=== PATIENT | male | born 1995 | race Caucasian/White ===

== ENCOUNTER → 2019-08-16 15:41 | Outpatient (CLI) | payer OTHER, SELFPAY ==
[2019-08-16 16:03] LABS: Alanine Aminotransferase 34 U/L (12-78); Albumin Level 4.6 g/dl (3.5-5.0); Albumin/Globulin Ratio 1.6 (1.1-1.8); Alkaline Phosphatase 30 U/L (38-126); Anion Gap 14.9 mEq/L (5-15); Aspartate Amino Transferase 27 U/L (17-59); Bilirubin,Total 0.4 mg/dl (0.2-1.3); Blood Urea Nitrogen 15 mg/dl (9-20); Calcium 9.8 mg/dl (8.4-10.2); Carbon Dioxide 25 mmol/L (22.0-30.0); Chloride 101 mmol/L (98-107); Estimated Glomerular Filt Rate 139 ml/min (>60); GFR (African American) 168 ML/MIN (>60); Globulin 2.9 g/dL (1.3-3.2); Glucose 101 mg/dl (74-100); HDL Cholesterol 42 mg/dl (40-60); Potassium 3.9 mmoL/L (3.5-5.1); Sodium 137 mmol/L (136-145); Total Protein,Serum 7.5 g/dl (6.3-8.2)
[2019-08-16 16:11] LABS: Basophils # 0.1 K/mm3 (0-0.2); Basophils % 0.5 % (0.1-2.0); Eosinophils # 0.5 K/mm3 (0.0-0.4); Eosinophils % 4.9 % (0.1-12.0); Hematocrit 45.8 % (42.0-52.0); Hemoglobin 15.3 g/dL (14.1-18.0); Lymphocytes # 3.5 K/mm3 (0.7-4.5); Lymphocytes % 32.1 % (10-50); Mean Corpuscular HGB Conc 33.4 g/dL (31.8-35.4); Mean Corpuscular Hemoglobin 30.3 pg (27.0-31.2); Mean Corpuscular Volume 90.7 fl (80-94); Mean Platelet Volume 9.4 fl (7.4-10.4); Monocytes # 0.8 K/mm3 (0.1-1.0); Monocytes % 7.6 % (1.7-9.3); Neutrophils % 54.9 % (37.0-80.0); Platelet Count 319 K/mm3 (142-424); Red Blood Count 5.05 M/mm3 (4.60-6.20); Red Cell Distribution Width 13.2 % (11.5-17.5)
[2019-08-16 16:20] LABS: Cholesterol 166 mg/dl (140-200); Triglycerides 164 mg/dl (30-150); VLDL Cholesterol 33 mg/dL (0-40)
[2019-08-16 16:31] LABS: Direct LDL Cholesterol 103.57 mg/dL (100-129)
[2019-08-16 16:38] LABS: T4 (Thyroxine) 7.2 ug/dl (5.53-11.0)
[2019-08-16 16:51] LABS: Thyroid Stimulating Hormone 1.84 uIU/mL (0.465-4.68)
[2019-08-19 09:54] LABS: Vitamin D 25 Hydroxy 20.9 ng/mL (30.0-100.0)
== END ==
PROVIDERS: Visit Provider Emergency Medicine
DX: F32.9 Major depressive disorder, single episode, unspecified (principal); E55.9 Vitamin D deficiency, unspecified
CPT/HCPCS: 80053; 80061; 82652; 84436; 84443; 85025

== ENCOUNTER 2020-02-04 18:02 | Emergency (ER) | payer OTHER, SELFPAY ==
[2020-02-04 18:15] VITALS: BP 144/84; PULSE 68; RESP 19; TEMP 36.8; O2SAT 99; BMI 30.2
[2020-02-04 18:37] LABS: UTC Strep Screen (Rapid) Negative (Negative)
--- NOTE | 2020-02-04 18:39 | HMH.EDUTC ---
[facility] [place] Clinical Impression: Sinusitis Qualifiers: Sinusitis location: unspecified location Chronicity: acute Recurrence: non-recurrent Qualified Code(s): J01.90 - Acute sinusitis, unspecified Upper respiratory infection Qualifiers: URI type: croup Qualified Code(s): J05.0 - Acute obstructive laryngitis [croup] Pharyngitis Qualifiers: Pharyngitis/tonsillitis etiology: unspecified etiology Qualified Code(s): J02.9 - Acute pharyngitis, unspecified Disposition: Home, Self-Care Condition on Discharge: Good Instructions: Sinusitis, DI for Sinusitis Additional Instructions: [id number] plenty of fluids. Take tylenol or ibuprofen for pain or fever. Take the medications as directed. Follow up with your regular doctor. GO TO THE ER FOR ANY WORSENING SYMPTOMS Prescriptions: Brompheniramine/Pseudoephed/Dm [Bromfed Dm Cough Syrup] 5 ml PO Q6HP PRN #240 syrup PRN Reason: Cough Transmission Status: Received by [id number] Benzonatate [Tessalon Perle 100mg Cap] 100 mg PO TIDP PRN #30 cap PRN Reason: Cough Transmission Status: Received by [id number] Azithromycin [Z-Tanner 250mg Tab*] 250 mg PO UD DOSE PK #6 tab Transmission Status: Received by [id number] Referrals: Tre Hester MD [Primary Care Provider] - Forms: Work/School Release Time of Disposition: 18:54 Medical Decision Making - Medical Records Medical records reviewed: No: I reviewed the patient's medical records. - Oscar Inquiry Pt receiving controlled substance: No Vital Signs: 02/04/20 18:15 02/04/20 18:58 Temperature 98.2 F 98.2 F Temperature Source Oral Pulse Rate 68 Pulse Rate [Right Brachial] 68 Respiratory Rate 19 19 Blood Pressure 144/84 H Blood Pressure [Right Arm] 144/84 H Blood Pressure Mean [Right Arm] 104 Blood Pressure Source [Right Arm] Automatic Cuff Blood Pressure Position [Right Arm] Sitting 02 Sat by Pulse Oximetry 99 Oxygen Delivery Method Room Air - Lab Data Lab results reviewed: Yes: I reviewed the patient's lab results. Lab Results 02/04/20 18:37: Strep Scn Rapid Clinic Negative Orders (Tests/Meds): ORDERS Category Date Time Status Strep Screen Confirmation Stat Micro 02/04/20 18:37 Received [facility] [place] - General Stated complaint: Sore throat, diarrhea, nausea Time Seen by Provider: 02/04/20 18:39 Mode of Arrival: Ambulatory Source of Information: Patient Limitations: No Limitations Description of Symptoms (Recalled from Triage Doc. by RN): PATIENT C/O SORE THROAT, NAUSEA, AND COUGH X 2 DAYS HEENT Symptoms (Recalled from RN notes): Yes Resp Symptoms (Recalled from RN notes): Yes Skin Symptoms (Recalled from RN notes): No MS Symptoms (Recalled from RN notes): No Functional Status (Recalled from RN notes): WNL - History of Present Illness Provider Complaint: He c/o sore throat, sinus congestion, and sinus drainage for the past 3 days. - Related Data Home Medications Medication Instructions Recorded Confirmed ARIPiprazole [Aripiprazole 10mg 10 mg PO QHS 02/04/20 02/04/20 Tablet] Previous Rx's Medication Instructions Recorded Azithromycin [Z-Tanner 250mg Tab*] 250 mg PO UD DOSE PK #6 tab 02/04/20 Benzonatate [Tessalon Perle 100mg 100 mg PO TIDP PRN #30 cap 02/04/20 Cap] Brompheniramine/Pseudoephed/Dm 5 ml PO Q6HP PRN #240 syrup 02/04/20 [Bromfed Dm Cough Syrup] Allergies Allergy/AdvReac Type Severity Reaction Status Date / Time No Known Allergies Allergy Verified 10/01/19 09:01 - Worker's Comp Is this a Worker's Comp case?: No [facility] History - Hepatitis A Screen Drug use history?: No High risk sexual behaviors?: No History of sexually transmitted infection?: No Currently employed?: No Childcare worker?: No Do you have indoor plumbing?: Yes Do you have electricity?: Yes Attestation statement:: This patient has been screened for Hepatitis A risk factors. I have reviewed the patient's past medi
[2020-02-04 18:58] VITALS: BP 144/84; PULSE 68; RESP 19; TEMP 36.8; O2SAT 99
== END 2020-02-04 19:00 | disposition home or self-care (01) ==
PROVIDERS: Emergency Provider Nurse Practitioner Family; PCP Emergency Medicine
DX: J01.90 Acute sinusitis, unspecified (principal); J05.0 Acute obstructive laryngitis [croup]; K21.9 Gastro-esophageal reflux disease without esophagitis; F32.9 Major depressive disorder, single episode, unspecified; F17.210 Nicotine dependence, cigarettes, uncomplicated
CPT/HCPCS: 87880; 99201

== ENCOUNTER → 2020-02-26 18:12 | Outpatient (CLI) | payer OTHER, SELFPAY | PROVIDERS: PCP Emergency Medicine; Referring Provider Emergency Medicine; Visit Provider Emergency Medicine | DX: Z03.818 Encounter for observation for suspected exposure to other biological agents ruled out (principal) | CPT/HCPCS: U0003 ==

== ENCOUNTER 2020-10-06 12:02 | Emergency (ER) | payer OTHER, SELFPAY ==
[2020-10-06 12:03] VITALS: BP 118/90; PULSE 82; RESP 19; TEMP 37; O2SAT 97; BMI 34.2
[2020-10-06 12:18] VITALS: BP 118/90; PULSE 82; RESP 19; TEMP 37; O2SAT 97
--- NOTE | 2020-10-06 12:20 | XR_ITS ---
PROCEDURE: XR CHEST 2V CLINICAL HISTORY: shortness of breath COMPARISON: No exams were available for comparison FINDINGS: The cardiomediastinal silhouette and pulmonary vascularity are within normal limits. The lungs are clear without infiltrates, suspicious nodules, or pleural effusions. No acute bony abnormalities. IMPRESSION: No acute findings. Dictated by: Octavio Horvath MD 10/06/2020 13:17 Octavio Horvath MD in [place] 10/06/2020 13:19
--- NOTE | 2020-10-06 12:45 | HMH.EDUTC ---
[facility] [place]ression: Bronchitis Disposition: Home, Self-Care Condition on Discharge: Good Instructions: DI for Acute Bronchitis Additional Instructions: Drink plenty of fluids. Take tylenol or ibuprofen for pain or fever. Take the medications as directed. Follow up with your regular doctor. GO TO THE ER FOR ANY WORSENING SYMPTOMS Prescriptions: Brompheniramine/Pseudoephed/Dm [Bromfed Dm Cough Syrup] 5 ml PO Q6HP PRN #240 syrup PRN Reason: Cough Transmission Status: Received by [id number] predniSONE [Prednisone 20mg Tab] 20 mg PO BID 4 Days #8 tab Transmission Status: Received by [id number] Azithromycin [Z-Tanner 250mg Tab*] 250 mg PO UD DOSE PK #6 tab Transmission Status: Received by [id number] Referrals: Tre Hester MD [Primary Care Provider] - Forms: Work/School Release Time of Disposition: 13:37 Medical Decision Making - Medical Records Medical records reviewed: No: I reviewed the patient's medical records. - Oscar Inquiry Pt receiving controlled substance: No Vital Signs: 10/06/20 12:03 10/06/20 12:18 Temperature 98.6 F 98.6 F Temperature Source Oral Pulse Rate 82 Pulse Rate [Left] 82 Respiratory Rate 19 19 Blood Pressure 118/90 Blood Pressure [Right Arm] 118/90 Blood Pressure Mean [Right Arm] 99 02 Sat by Pulse Oximetry 97 - Radiology Data #1 Image(s): Chest Image Reviewed: Yes I reviewed the patient's radiology image, Yes I have reviewed radiologist's interpretation Preliminary Findings: Normal/NAD, No Infiltrates Seen PROCEDURE: XR CHEST 2V CLINICAL HISTORY: shortness of breath COMPARISON: No exams were available for comparison FINDINGS: The cardiomediastinal silhouette and pulmonary vascularity are within normal limits. The lungs are clear without infiltrates, suspicious nodules, or pleural effusions. No acute bony abnormalities. IMPRESSION: No acute findings. Dictated by: Octavio Horvath MD 10/06/2020 13:17 Octavio Horvath MD in [place] 10/06/2020 13:19 [facility] [place] - General Stated complaint: cough Time Seen by Provider: 10/06/20 12:10 Mode of Arrival: Ambulatory Source of Information: Patient Limitations: No Limitations Description of Symptoms (Recalled from Triage Doc. by RN): Pt states that he woke up this morning and couldn't catch his breath. Pt also c/o of a cough that started this morning. HEENT Symptoms (Recalled from RN notes): No Resp Symptoms (Recalled from RN notes): Yes Skin Symptoms (Recalled from RN notes): No MS Symptoms (Recalled from RN notes): No Functional Status (Recalled from RN notes): wnl - History of Present Illness Provider Complaint: He states that since he woke up this morning he has a dry cough and he has felt short of breath at times. He denies any other complaints. - Related Data Home Medications Medication Instructions Recorded Confirmed ARIPiprazole [Aripiprazole 10mg 10 mg PO QHS 02/04/20 02/04/20 Tablet] Previous Rx's Medication Instructions Recorded Azithromycin [Z-Tanner 250mg Tab*] 250 mg PO UD DOSE PK #6 tab 02/04/20 Benzonatate [Tessalon Perle 100mg 100 mg PO TIDP PRN #30 cap 02/04/20 Cap] Brompheniramine/Pseudoephed/Dm 5 ml PO Q6HP PRN #240 syrup 02/04/20 [Bromfed Dm Cough Syrup] Azithromycin [Z-Tanner 250mg Tab*] 250 mg PO UD DOSE PK #6 tab 10/06/20 Brompheniramine/Pseudoephed/Dm 5 ml PO Q6HP PRN #240 syrup 10/06/20 [Bromfed Dm Cough Syrup] predniSONE [Prednisone 20mg 20 mg PO BID 4 Days #8 tab 10/06/20 Tab] Allergies Allergy/AdvReac Type Severity Reaction Status Date / Time No Known Allergies Allergy Verified 10/06/20 12:17 - Worker's Comp Is this a Worker's Comp case?: No [facility] History - Hepatitis A Screen Drug use history?: No High risk sexual behaviors?: No History of sexually transmitted infection?: No Currently employed?: No Childcare worker?: No Do you have indoor plumbing?: Yes
== END 2020-10-06 13:40 | disposition home or self-care (01) ==
PROVIDERS: Emergency Provider Nurse Practitioner Family; PCP Emergency Medicine
DX: J20.9 Acute bronchitis, unspecified (principal); K21.9 Gastro-esophageal reflux disease without esophagitis; F33.1 Major depressive disorder, recurrent, moderate
CPT/HCPCS: 71046; 99202; G0463

== ENCOUNTER 2020-12-09 19:03 | Emergency (ER) | payer OTHER, SELFPAY ==
[2020-12-09 19:37] VITALS: BMI 34.9
--- NOTE | 2020-12-09 19:37 | XR_ITS ---
PROCEDURE INFORMATION: Exam: XR Right Foot Exam date and time: 12/09/2020 7:37 PM Age: 25 years old Clinical indication: Pain; Toes; Right; Additional info: Pain and swelling TECHNIQUE: Imaging protocol: XR Right foot. Views: 3 or more views. COMPARISON: No relevant prior studies available. FINDINGS: Bones/joints: No definite acute fracture or dislocation. There are no lytic skeletal lesions seen. Tiny Achilles calcaneal spur. No significant arthritic deformities in the toes. Soft tissues: Soft tissue swelling. No radiopaque foreign bodies. No pathologic soft tissue calcification. IMPRESSION: 1. No acute fracture or dislocation. 2. No lytic lesions or findings of osteomyelitis. 3. Tiny Achilles calcaneal spur.
[2020-12-09 19:50] VITALS: BP 138/86; PULSE 108; RESP 18; TEMP 36.5; O2SAT 98; BMI 34.9
--- NOTE | 2020-12-09 20:25 | HMH.EDUTC ---
[facility] [place] Clinical Impression: Contusion of right foot Qualifiers: Encounter type: initial encounter Qualified Code(s): S90.31XA - Contusion of right foot, initial encounter Disposition: Home, Self-Care Condition on Discharge: Good Instructions: DI for Foot Sprain Additional Instructions: Rest the extremity, apply ice for 15 minutes as tolerated three or four times per day, Elevate the extremity as tolerated while you are resting. Take ibuprofen for pain. I sent in a prescription to your pharmacy. Follow up with Dr. Alvarez (podiatry). Sometimes there can be fractures that don't show up well on the first set of x-rays. So, you should follow up if you continue to have symptoms. I put in a referral but you need to call her office and schedule an appointment. Follow up with your regular doctor. GO TO THE ER FOR ANY WORSENING SYMPTOMS Prescriptions: Ibuprofen [Ibuprofen 800mg Tablet] 800 mg PO Q8HP PRN #30 tab PRN Reason: Moderate Pain Transmission Status: Received by [id number] Referrals: Tre Hester MD [Primary Care Provider] - Forms: Work/School Release Time of Disposition: 20:33 Medical Decision Making - Medical Records Medical records reviewed: No: I reviewed the patient's medical records. - Oscar Inquiry Pt receiving controlled substance: No Vital Signs: 12/09/20 19:50 12/09/20 20:35 Temperature 97.7 F 98 F Temperature Source Oral Pulse Rate 99 H Pulse Rate [Left] 108 H Respiratory Rate 18 18 Blood Pressure 133/85 Blood Pressure [Right Arm] 138/86 Blood Pressure Mean [Right Arm] 103 02 Sat by Pulse Oximetry 98 - Radiology Data #1 Image(s): Foot/Toes Image Reviewed: Yes I reviewed the patient's radiology image, Yes I have reviewed radiologist's interpretation PROCEDURE INFORMATION: Exam: XR Right Foot Exam date and time: 12/09/2020 7:37 PM Age: 25 years old Clinical indication: Pain; Toes; Right; Additional info: Pain and swelling TECHNIQUE: Imaging protocol: XR Right foot. Views: 3 or more views. COMPARISON: No relevant prior studies available. FINDINGS: Bones/joints: No definite acute fracture or dislocation. There are no lytic skeletal lesions seen. Tiny Achilles calcaneal spur. No significant arthritic deformities in the toes. Soft tissues: Soft tissue swelling. No radiopaque foreign bodies. No pathologic soft tissue calcification. IMPRESSION: 1. No acute fracture or dislocation. 2. No lytic lesions or findings of osteomyelitis. 3. Tiny Achilles calcaneal spur. [facility] [place] HPI - General Stated complaint: AP 12/09@1500 injured R foot Time Seen by Provider: 12/09/20 20:25 Mode of Arrival: Ambulatory Source of Information: Patient Limitations: No Limitations Description of Symptoms (Recalled from Triage Doc. by RN): pt states he got angry and kicked his car. pts R foot is swollen and painful near his great toe. HEENT Symptoms (Recalled from RN notes): No Resp Symptoms (Recalled from RN notes): No Skin Symptoms (Recalled from RN notes): No MS Symptoms (Recalled from RN notes): Yes (R foot pain) Functional Status (Recalled from RN notes): na - History of Present Illness Provider Complaint: He states that earlier today he accidentily kicked something with his right foot. Since then he has had foot pain at the base of his great toe. Walking and bearing weight makes the pain worse. - Related Data Home Medications Medication Instructions Recorded Confirmed ARIPiprazole [Aripiprazole 10mg 10 mg PO QHS 02/04/20 02/04/20 Tablet] Previous Rx's Medication Instructions Recorded Azithromycin [Z-Tanner 250mg Tab*] 250 mg PO UD DOSE PK #6 tab 02/04/20 Benzonatate [Tessalon Perle 100mg 100 mg PO TIDP PRN #30 cap 02/04/20 Cap] Brompheniramine/Pseudoephed/Dm 5 ml PO Q6HP PRN #240 syrup 02/04/20 [Bromfed Dm Cough Syrup] Azithromycin [Z-Tanner 250m
[2020-12-09 20:35] VITALS: BP 133/85; PULSE 99; RESP 18; TEMP 36.6
== END 2020-12-09 20:40 | disposition home or self-care (01) ==
PROVIDERS: Emergency Provider Nurse Practitioner Family; PCP Emergency Medicine
DX: S90.31XA Contusion of right foot, initial encounter (principal); W22.09XA Striking against other stationary object, initial encounter; F17.210 Nicotine dependence, cigarettes, uncomplicated
CPT/HCPCS: 73630; 99202; G0463

== ENCOUNTER 2021-03-20 08:58 | Emergency (ER) | payer OTHER, SELFPAY ==
[2021-03-20 09:00] VITALS: BP 143/88; PULSE 89; RESP 19; TEMP 36.6; O2SAT 98; BMI 33.4
--- NOTE | 2021-03-20 09:55 | HMH.EDUTC ---
[facility] [place] Clinical Impression: Exposure to COVID-19 virus Disposition: Home, Self-Care Condition on Discharge: Good Instructions: Preventing the Spread of Coronavirus Discharge Instructions, How to Care for Someone with COVID-19 Additional Instructions: covid swab was sent to lab, call later today for results. self isolate until test results are known to be negative No sign of a bacterial infection. Likely viral. Viruses can take 7-14 days to run their course. Nasal saline and bulb syringe or nose Amie to remove nasal drainage to help with nasal congestion. Hard to eat, drink, sleep with nasal congestion so important to keep this cleaned out. Monitor temp. Tylenol or Motrin as needed for pain or fever Encourage fluids, water, Gatorade, Powerade, Pedialyte if /toddler/child Warm salt water gargles Warm fluids Sore throat lozenges Sleep elevated Humidifier/vaporizer Follow-up immediately for new or worsening symptoms or no noticeable improvement over the next 48-72 hours. Referrals: Tre Hester MD [Primary Care Provider] - Forms: Work/School Release Time of Disposition: 09:58 Medical Decision Making - Oscar Inquiry Pt receiving controlled substance: No Vital Signs: 03/20/21 09:00 Temperature 97.8 F Temperature Source Oral Pulse Rate [Right Brachial] 89 Respiratory Rate 19 Blood Pressure [Right Arm] 143/88 H Blood Pressure Mean [Right Arm] 106 Blood Pressure Source [Right Arm] Automatic Cuff Blood Pressure Position [Right Arm] Sitting 02 Sat by Pulse Oximetry 98 Oxygen Delivery Method Room Air Orders (Tests/Meds): ORDERS Category Date Time Status Covid-19 Nasal PCR ([facility]) Routine Lab 03/20/21 09:10 Received [facility] [place] HPI - General Chief complaint: Ur[facility] Stated complaint: covid exposure Time Seen by Provider: 03/20/21 09:55 Mode of Arrival: Ambulatory Source of Information: Patient Limitations: No Limitations Description of Symptoms (Recalled from Triage Doc. by RN): PATIENT REQUESTING COVID TEST. TESTED POSITIVE TODAY. DENIES SYMPTOMS HEENT Symptoms (Recalled from RN notes): No Resp Symptoms (Recalled from RN notes): No Skin Symptoms (Recalled from RN notes): No MS Symptoms (Recalled from RN notes): No Functional Status (Recalled from RN notes): WNL - History of Present Illness Provider Complaint: 26 yr old male presents for covid test. pt states no symptoms, positive for covid - Related Data Home Medications Medication Instructions Recorded Confirmed ziprasidone HCL [Geodon 40mg 40 mg PO BID 03/20/21 03/20/21 capsule] Allergies Allergy/AdvReac Type Severity Reaction Status Date / Time No Known Allergies Allergy Verified 10/06/20 12:17 - Worker's Comp Is this a Worker's Comp case?: No H History - Hepatitis A Screen Drug use history?: No High risk sexual behaviors?: No History of sexually transmitted infection?: No Currently employed?: No Childcare worker?: No Do you have indoor plumbing?: Yes Do you have electricity?: Yes Attestation statement:: This patient has been screened for Hepatitis A risk factors. I have reviewed the patient's past medical history: Yes Medical History: Reports:: Depression, Gastroesophageal Reflux Disease(GERD) Amputation: No Fractures: Yes (RIGHT FEMUR/TIBIA/FIBULA, CLAVICAL) Comment: left leg fx - Social History Smoking Status: Current every day smoker Tobacco Type: cigarettes # Packs/Day (cigarettes): 2 #Yrs smoked (if former smoker): 5 Alcohol Intake: never Substance Use Type: denies use, marijuana (last time in 2018) Occupational Status: other - Psychiatric History Pschychiatric History:: Reports:: Depression Family Hx:: Cancer, Diabetes, Heart Attack, Hyperlipidemia, Hypertension, Alcoholism ROS Obtained: Yes Systems reviewed as appropriate & no additional complaints - Constitutional Constitutional: Reports system reviewed and no additional complaints, except as d
[2021-03-20 09:58] VITALS: BP 143/88; PULSE 89; RESP 19; TEMP 36.6; O2SAT 98
== END 2021-03-20 10:04 | disposition home or self-care (01) ==
PROVIDERS: Emergency Provider Nurse Practitioner Family; PCP Emergency Medicine
DX: U07.1 COVID-19 (principal); K21.9 Gastro-esophageal reflux disease without esophagitis; F33.1 Major depressive disorder, recurrent, moderate; F17.210 Nicotine dependence, cigarettes, uncomplicated
CPT/HCPCS: 99202; C9803; G0463; U0003; U0005

== ENCOUNTER 2021-12-30 13:20 | Emergency (ER) | payer OTHER, SELFPAY ==
[2021-12-30 13:20] VITALS: BP 145/91; PULSE 83; RESP 18; TEMP 36.8; O2SAT 98; BMI 34.0
[2021-12-30 13:36] VITALS: BP 145/91; PULSE 83; RESP 18; TEMP 36.8; O2SAT 98
--- NOTE | 2021-12-30 13:58 | HMH.EDUTC ---
[facility] [place] Clinical Impression: Exposure to COVID-19 virus Disposition: Home, Self-Care Condition on Discharge: Good Instructions: DI for COVID-19 (Suspected or Confirmed ), Preventing the Spread of Coronavirus Discharge Instructions Additional Instructions: *Monitor Temp, Over the counter Motrin or Tylenol as directed/as needed Tylenol every 4 hours and Motrin every 6 hours (as long as your family doctor has told you that you can take it) for fever or pain. and straight to ER if unable to lower temp less than 101.0 after medication given Follow up IMMEDIATELY for new or worsening symptoms or no Noticeable improvement over the next 48-72 hours. 911 for difficulty breathing or swallowing You were tested for today for COVID19 your test result should be back in the next 24-48 hours, you may check your results on the [facility] My Health Portal Make sure to take your Vitamins Vit. C Vit D and Zinc if you can take them Referrals: Tre Hester MD [Primary Care Provider] - As needed Forms: Work/School Release Medical Decision Making - Oscar Inquiry Pt receiving controlled substance: No Oscar was queried for this patient: No Vital Signs: 12/30/21 13:20 12/30/21 13:36 Temperature 98.3 F 98.3 F Temperature Source Oral Pulse Rate 83 Pulse Rate [Right Brachial] 83 Respiratory Rate 18 18 Blood Pressure 145/91 H Blood Pressure [Right Arm] 145/91 H Blood Pressure Mean [Right Arm] 109 Blood Pressure Source [Right Arm] Automatic Cuff Blood Pressure Position [Right Arm] Sitting 02 Sat by Pulse Oximetry 98 Oxygen Delivery Method Room Air Orders (Tests/Meds): ORDERS Category Date Time Status Covid-19 Nasal PCR ([facility]) Routine Lab 12/30/21 13:25 Received [facility] [place] HPI - General Stated complaint: Covid exposure Time Seen by Provider: 12/30/21 13:35 Mode of Arrival: Ambulatory Source of Information: Patient Limitations: No Limitations Description of Symptoms (Recalled from Triage Doc. by RN): COVID TEST D/T EXPOSURE, DENIES SYMPTOMS HEENT Symptoms (Recalled from RN notes): No Resp Symptoms (Recalled from RN notes): No Skin Symptoms (Recalled from RN notes): No MS Symptoms (Recalled from RN notes): No Functional Status (Recalled from RN notes): WNL - History of Present Illness Provider Complaint: Patient states that he was around someone that tested positive for COVID about a week ago and his work wanted him to come get tested States that he is not having any symptoms - Related Data Home Medications Medication Instructions Recorded Confirmed ziprasidone HCL [Geodon 40mg 40 mg PO BID 03/20/21 03/20/21 capsule] Allergies Allergy/AdvReac Type Severity Reaction Status Date / Time No Known Allergies Allergy Verified 10/06/20 12:17 - Worker's Comp Is this a Worker's Comp case?: No [facility] History - Hepatitis A Screen Attestation statement:: This patient has been screened for Hepatitis A risk factors. I have reviewed the patient's past medical history: Yes Medical History: Reports:: Depression, Gastroesophageal Reflux Disease(GERD) Amputation: No Fractures: Yes (RIGHT FEMUR/TIBIA/FIBULA, CLAVICAL) Comment: left leg fx - Social History Smoking Status: Current every day smoker Tobacco Type: cigarettes # Packs/Day (cigarettes): 2 #Yrs smoked (if former smoker): 5 Alcohol Intake: never Substance Use Type: denies use, marijuana (last time in 2018) Occupational Status: other - Psychiatric History Pschychiatric History:: Reports:: Depression Family Hx:: Cancer, Diabetes, Heart Attack, Hyperlipidemia, Hypertension, Alcoholism ROS Obtained: Yes All systems reviewed & no additional complaints, Yes Systems reviewed as appropriate & no additional complaints - Constitutional Constitutional: Reports system reviewed and no additional complaints, except as docu, Denies body ache, Denies chills, Denies fever(s) - ENT Ears, Nose, Mouth, and Throat: Reports system reviewed and no ad
== END 2021-12-30 13:39 | disposition home or self-care (01) ==
PROVIDERS: Emergency Provider Nurse Practitioner; PCP Emergency Medicine
DX: Z20.822 Contact with and (suspected) exposure to COVID-19 (principal)
CPT/HCPCS: 99212; C9803; G0463; U0003; U0005

== ENCOUNTER 2022-01-16 15:15 | Emergency (ER) | payer OTHER, SELFPAY ==
[2022-01-16 15:33] VITALS: BP 102/78; PULSE 85; RESP 16; TEMP 37.3; O2SAT 96; BMI 33.7
--- NOTE | 2022-01-16 15:39 | EXP.UTC ---
Discharge Plan Disposition Patient Disposition: Home, Self-Care Condition: Good Prescriptions Prescriptions: No Action ziprasidone HCl 40 MG capsule 40 mg PO BID Referrals Follow up/Referrals: Tre Hester MD [Primary Care Provider] - See instructions Activity Restrictions/Add. Instructions Additional Instructions/Restrictions: Drink plenty of fluids. Take tylenol for pain or fever. Return if you begin to have difficulty breathing. Follow up with your regular doctor. GO TO THE ER FOR ANY WORSENING SYMPTOMS Quarantine until you know the results of your covid-19 test. Notify your school or workplace of your results and follow their instructions regarding return to work/school. Clinical Impressions Clinical Impression: Exposure to COVID-19 virus Instructions Patient Instructions: Coronavirus Disease 2019, Preventing the Spread of Coronavirus Discharge Instructions Discharge ED Provider: Hua Costello [facility] General Stated complaint: covid test Mode of Arrival: Ambulatory Source of Information: Patient Limitations: No Limitations Time Seen by Provider: 01/16/22 15:39 Description of Symptoms (Recalled from Triage Doc. by RN): pt here for covid pcr. pt has no symptoms but tested positive. here to get covid test for work. HEENT Symptoms (Recalled from RN notes): No Resp Symptoms (Recalled from RN notes): No Skin Symptoms (Recalled from RN notes): No MS Symptoms (Recalled from RN notes): No Functional Status (Recalled from RN notes): n/a History of Present Illness Provider Complaint: He is here to have a covid test for his employer. His has had covid-19 at his house. He denies any symptoms so far. Related Data Home Medications Medication Instructions Recorded Confirmed ziprasidone HCl 40 mg capsule 40 mg PO BID BIPOLAR 03/20/21 03/20/21 Allergies Allergy/AdvReac Type Severity Reaction Status Date / Time No Known Allergies Allergy Verified 01/16/22 15:36 Worker's Comp Is this a Worker's Comp case?: No PFSH PFSH Social History Smoking Status: Current every day smoker tobacco type: cigarettes packs per day: 2 second hand exposure: No alcohol intake: never substance use type: denies use current occupational status: other number of children: 2 ROS Obtained: Yes All systems reviewed & no additional complaints except as documented Constitutional Constitutional: Reports system reviewed and no additional complaints, except as documented Eyes Eyes: Reports system reviewed and no additional complaints, except as documented Cardiovascular Cardiovascular: Reports system reviewed and no additional complaints, except as documented Respiratory Respiratory: Reports system reviewed and no additional complaints, except as documented Gastrointestinal Gastrointestingal: Reports system reviewed and no additional complaints, except as documented Musculoskeletal Musculoskeletal: Reports system reviewed and no additional complaints, except as documented Integumentary/Breasts Skin/Breast: Reports system reviewed and no additional complaints, except as documented Physical Exam General General appearance: alert and in no apparent distress Head Head exam: atraumatic, normocephalic and normal inspection Eye Eye exam: Present normal appearance, PERRL and EOMI ENT ENT exam: Present normal exam, normal oropharynx, mucous membranes moist, TM's normal bilaterally and normal external ear exam Neck Neck exam: Present normal inspection, full ROM and trachea midline; Absent meningismus or lymphadenopathy Chest Chest inspection: Present normal inspection and symmetric chest wall rise; Absent tenderness Respiratory Respiratory exam: Present normal lung sounds bilaterally; Absent respiratory distress Cardiovascular Cardiovascular exam: Present regular rate and normal rhythm; Absent JVD Abdominal Exam Abdominal exam: Present soft
[2022-01-16 15:50] VITALS: BP 102/78; PULSE 85; RESP 16; TEMP 37.3
== END 2022-01-16 15:51 | disposition home or self-care (01) ==
PROVIDERS: Emergency Provider Nurse Practitioner Family; PCP Emergency Medicine
DX: U07.1 COVID-19 (principal); F17.210 Nicotine dependence, cigarettes, uncomplicated; Z79.899 Other long term (current) drug therapy
CPT/HCPCS: 99213; C9803; G0463; U0003; U0005

== ENCOUNTER 2022-03-27 10:07 | Emergency (ER) | payer OTHER, SELFPAY ==
--- NOTE | 2022-03-27 11:03 | EXP.UTC ---
Discharge Plan Disposition Patient Disposition: Home, Self-Care Condition: Good Prescriptions Prescriptions: New benzonatate [benzonatate] 100 mg capsule 100 mg PO TIDP PRN (Reason: Cough) Qty: 30 0RF oseltamivir [Tamiflu] 75 mg capsule 75 mg PO BID Qty: 10 0RF ondansetron 4 mg Tablet,Disintegrating 4 mg PO Q8H PRN (Reason: Nausea) Qty: 20 0RF No Action ziprasidone HCl 40 MG capsule 40 mg PO BID Referrals Follow up/Referrals: Tre Hester MD [Primary Care Provider] - See instructions Activity Restrictions/Add. Instructions Additional Instructions/Restrictions: Drink plenty of fluids. Take tylenol or ibuprofen for pain or fever. Take the medications as directed. Follow up with your regular doctor. GO TO THE ER FOR ANY WORSENING SYMPTOMS Clinical Impressions Clinical Impression: Influenza A Stand Alone Forms Stand Alone Forms: Work/School Release Instructions Patient Instructions: DI for Influenza -- Adult, Oseltamivir Discharge ED Provider: Hua Costello [facility] General Stated complaint: cough,fever,congestion,runny nose,achey.chills Time Seen by Provider: 03/27/22 11:03 History of Present Illness Provider Complaint: He states that for the past 2 days he has had fever, chill, body aches and a cough. Related Data Home Medications Medication Instructions Recorded Confirmed ziprasidone HCl 40 mg capsule 40 mg PO BID BIPOLAR 03/20/21 03/20/21 Previous Rx's Medication Instructions Recorded benzonatate 100 mg capsule 100 mg PO TIDP PRN Cough #30 caps 03/27/22 ondansetron 4 mg disintegrating 4 mg PO Q8H PRN Nausea #20 tabs 03/27/22 tablet oseltamivir 75 mg capsule (Tamiflu) 75 mg PO BID #10 caps 03/27/22 Allergies Allergy/AdvReac Type Severity Reaction Status Date / Time No Known Allergies Allergy Verified 03/27/22 11:[address] [facility] Social History Smoking Status: Current every day smoker tobacco type: cigarettes packs per day: 2 second hand exposure: No alcohol intake: never substance use type: denies use current occupational status: other Travel in the last 8 weeks: None number of children: 2 ROS Obtained: Yes All systems reviewed & no additional complaints except as documented Constitutional Constitutional: Reports chills and Reports fever(s) Eyes Eyes: Denies eye discharge ENT Ears, Nose, Mouth, and Throat: Reports as per HPI Cardiovascular Cardiovascular: Denies chest pain Respiratory Respiratory: Denies chest congestion and Reports cough Gastrointestinal Gastrointestingal: Reports nausea; Denies abdominal pain, constipation, cramping, diarrhea or vomiting Musculoskeletal Musculoskeletal: Denies arthralgias Integumentary/Breasts Skin/Breast: Denies rash Neurologic Neurologic: Denies paresthesias Physical Exam General General appearance: alert and in no apparent distress Head Head exam: atraumatic, normocephalic and normal inspection Eye Eye exam: Present normal appearance, PERRL and EOMI ENT ENT exam: Present normal exam, normal oropharynx, mucous membranes moist, TM's normal bilaterally and normal external ear exam Neck Neck exam: Present normal inspection, full ROM and trachea midline; Absent meningismus or lymphadenopathy Chest Chest inspection: Present normal inspection and symmetric chest wall rise; Absent tenderness Respiratory Respiratory exam: Present normal lung sounds bilaterally; Absent respiratory distress Cardiovascular Cardiovascular exam: Present regular rate and normal rhythm; Absent JVD Abdominal Exam Abdominal exam: Present soft and normal bowel sounds; Absent distention, tenderness or guarding Extremities Exam Extremities exam: Present normal inspection, full ROM and normal capillary refill; Absent calf tenderness Back Exam Back exam: Present normal inspection; Absent tenderness Neurological Exam Neurological exam: Present alert and orient
[2022-03-27 11:11] VITALS: BP 139/85; PULSE 90; RESP 18; TEMP 36.5; O2SAT 96; BMI 34.0
[2022-03-27 11:25] LABS: UTC Influenza A Antigen Positive (Negative); UTC Strep Screen (Rapid) Negative (Negative)
[2022-03-27 11:26] LABS: UTC Influenza B Antigen Negative (Negative)
[2022-03-27 11:54] VITALS: BP 139/85; PULSE 90; RESP 18; TEMP 36.5
== END 2022-03-27 11:55 | disposition home or self-care (01) ==
PROVIDERS: Emergency Provider Nurse Practitioner Family; PCP Emergency Medicine
DX: J10.1 Influenza due to other identified influenza virus with other respiratory manifestations (principal); R11.0 Nausea; R50.9 Fever, unspecified; R05.9 Cough, unspecified; M79.10 Myalgia, unspecified site; Z79.899 Other long term (current) drug therapy; F17.210 Nicotine dependence, cigarettes, uncomplicated; R09.89 Other specified symptoms and signs involving the circulatory and respiratory systems
CPT/HCPCS: 87804; 87880; 99213; G0463

== ENCOUNTER 2023-02-03 08:23 | Emergency (ER) | payer BC, SELFPAY ==
[2023-02-03 08:23] VITALS: BP 134/86; PULSE 88; RESP 18; TEMP 36.7; O2SAT 99; BMI 35.4
--- NOTE | 2023-02-03 08:38 | EXP.UTC ---
Discharge Plan Disposition Patient Disposition: Home, Self-Care Condition: Good Prescriptions Prescriptions: New etodolac 200 mg capsule 200 mg PO Q8H PRN (Reason: pain) Qty: 20 0RF cyclobenzaprine 10 mg tablet 10 mg PO TID PRN (Reason: muscle spasm) Qty: 12 0RF No Action ziprasidone HCl 40 MG capsule 40 mg PO BID benzonatate [benzonatate] 100 mg capsule 100 mg PO TIDP PRN (Reason: Cough) Qty: 30 0RF oseltamivir [Tamiflu] 75 mg capsule 75 mg PO BID Qty: 10 0RF ondansetron 4 mg Tablet,Disintegrating 4 mg PO Q8H PRN (Reason: Nausea) Qty: 20 0RF Referrals Follow up/Referrals: Tre Hester MD [Primary Care Provider] - See instructions Activity Restrictions/Add. Instructions Additional Instructions/Restrictions: *Etodolac la 8 hours with meal as needed for pain/inflammation *Remember you had a Toradol shot in the clinic today, which is similar to Etodolac so do not start for the next 10 hours *Not additional anti-inflammatory like Ibuprofen motrin, aleve, advil with the above amount of Etodolac. You can still take Tylenol every 4 hours as needed if you need something else for pain *Ice 20 minutes every 2 hours for the first 48 hours after the initial injury followed by moist heat every 20 minutes 3-4 times a day to affected area *Muscle relaxer every 8 hours as needed for muscle spasms but remember, it WILL cause drowsiness You cannot take it and drive, operate machinery or care for small children. *Keep this area active, no movement leads to more stiffness, However take it easy and avoid heavy lifting pushing or pulling *Follow up with you family doctor if no improvement for further treatment Clinical Impressions Clinical Impression: Low back strain Qualifiers: Encounter type: initial encounter Qualified Code(s): S39.012A - Strain of muscle, fascia and tendon of lower back, initial encounter Stand Alone Forms Stand Alone Forms: Work/School Release Instructions Patient Instructions: Low Back Pain, Cyclobenzaprine, Etodolac Discharge ED Provider: Alice Siddiqui [facility] General Stated complaint: back pain, no accident Mode of Arrival: Ambulatory Source of Information: Patient Limitations: No Limitations Time Seen by Provider: 02/03/23 08:39 Description of Symptoms (Recalled from Triage Doc. by RN): Patient reports that his back popped this morning when he got up and now it has been hurting on the left side ever since. States his back is more stiff if he sits for too long. HEENT Symptoms (Recalled from RN notes): No Resp Symptoms (Recalled from RN notes): No Skin Symptoms (Recalled from RN notes): No MS Symptoms (Recalled from RN notes): Yes Functional Status (Recalled from RN notes): wnl History of Present Illness Provider Complaint: Patient states that he was brushing his teeth this morning and started throwing up States that he was bent over throwing up and felt something pull in his left side of lower back States that since then he has been having spasm like feeling in his left lower back and feeling stiff if he sits too long Statse that he hasnt taken anything for the pain Denies loss of control of bowel or bladder Related Data Home Medications Medication Instructions Recorded Confirmed ziprasidone HCl 40 mg capsule 40 mg PO BID BIPOLAR 03/20/21 03/20/21 Previous Rx's Medication Instructions Recorded benzonatate 100 mg capsule 100 mg PO TIDP PRN Cough #30 caps 03/27/22 ondansetron 4 mg disintegrating 4 mg PO Q8H PRN Nausea #20 tabs 03/27/22 tablet oseltamivir 75 mg capsule (Tamiflu) 75 mg PO BID #10 caps 03/27/22 cyclobenzaprine 10 mg tablet 10 mg PO TID PRN muscle spasm #12 02/03/23 tabs etodolac 200 mg capsule 200 mg PO Q8H PRN pain #20 caps 02/03/23 Allergies Allergy/AdvReac Type Severity Reaction Status Date / Time No Known Allergies Allergy Verified 03/27/22 11:16 Worker's Comp Is this a Worker's Comp case?: No PFS PFS
[2023-02-03 09:14] VITALS: BP 134/86; PULSE 88; RESP 18; TEMP 36.7; O2SAT 99
== END 2023-02-03 09:14 | disposition home or self-care (01) ==
PROVIDERS: Emergency Provider Nurse Practitioner; PCP Emergency Medicine
DX: S39.012A Strain of muscle, fascia and tendon of lower back, initial encounter; F17.210 Nicotine dependence, cigarettes, uncomplicated; X50.0XXA Overexertion from strenuous movement or load, initial encounter
CPT/HCPCS: 96372; 99212; 99214; G0463

== ENCOUNTER → 2023-02-06 10:18 | Outpatient (CLI) | payer BC, SELFPAY ==
--- NOTE | 2023-02-06 10:20 | XR_ITS ---
FINAL REPORT CLINICAL HISTORY: disc herniation, was recently bending and felt a pop COMPARISON: None FINDINGS: The vertebrae are normal height. Alignment is within normal limits. The disc spaces are preserved. Prevertebral soft tissues are unremarkable. There is no instability with flexion or extension. IMPRESSION: No acute process. Reviewed, Interpreted and Dictated by Darrell Craven MD Transcribed by Marcela Barragan Authenticated and [facility]
== END ==
PROVIDERS: PCP Emergency Medicine; Visit Provider Nurse Practitioner Family
DX: S39.012A Strain of muscle, fascia and tendon of lower back, initial encounter (principal); Y99.9 Unspecified external cause status
CPT/HCPCS: 72114

== ENCOUNTER → 2023-03-04 08:55 | Outpatient (CLI) | payer BC, SELFPAY ==
[2023-03-04 09:04] LABS: MANUAL DIFFERENTIAL MANUAL DIFFERENTIAL (MANUAL DIFF)
[2023-03-04 09:32] LABS: Basophils # 0.1 K/mm3 (0-0.2); Basophils % 0.6 % (0.1-2.0); Eosinophils # 0.5 K/mm3 (0.0-0.4); Eosinophils % 5.4 % (0.1-12.0); Hematocrit 43.3 % (42.0-52.0); Lymphocytes % 30.3 % (10-50); Mean Corpuscular HGB Conc 34.6 g/dL (31.8-35.4); Mean Corpuscular Hemoglobin 30.8 pg (27.0-31.2); Mean Corpuscular Volume 88.8 fl (80-94); Mean Platelet Volume 7.9 fl (7.4-10.4); Monocytes # 0.7 K/mm3 (0.1-1.0); Monocytes % 6.9 % (1.7-9.3); Neutrophils # 5.6 K/mm3 (1.8-7.8); Neutrophils % 56.7 % (37.0-80.0); Platelet Count 285 K/mm3 (142-424); Red Blood Count 4.88 M/mm3 (4.60-6.20); Red Cell Distribution Width 13.8 % (11.5-17.5); White Blood Count 9.9 K/mm3 (4.8-10.8)
[2023-03-04 09:43] LABS: Hemoglobin A1C 5.8 % (4.0-6.0)
[2023-03-04 09:47] LABS: Alanine Aminotransferase 38 U/L (12-78); Albumin Level 4.4 g/dl (3.5-5.0); Albumin/Globulin Ratio 1.4 (1.1-1.8); Alkaline Phosphatase 41 U/L (38-126); Amphetamine/Metha Screen,Urine Negative ng/ml (<1000); Aspartate Amino Transferase 33 U/L (17-59); Barbiturates Screen,Urine Negative ng/ml (<200); Bilirubin,Total 0.3 mg/dl (0.2-1.3); Blood Urea Nitrogen 11 mg/dl (9-20); Calcium 9.6 mg/dl (8.4-10.2); Carbon Dioxide 30 mmol/L (22.0-30.0); Chloride 102 mmol/L (98-107); Chol/HDL Ratio 5.2 (1-3.5); Cholesterol 178 mg/dl (140-200); Estimated Glomerular Filt Rate 89 ml/min (>60); GFR (African American) 108 ML/MIN (>60); Globulin 3.1 g/dL (1.3-3.2); Glucose 103 mg/dl (74-100); HDL Cholesterol 34 mg/dl (40-60); Sodium 140 mmol/L (136-145); Total Protein,Serum 7.5 g/dl (6.3-8.2); Triglycerides 141 mg/dl (30-150); VLDL Cholesterol 28 mg/dL (0-40)
[2023-03-04 09:48] LABS: Cannabinoid Screen,Urine Negative ng/ml (<50)
[2023-03-04 09:49] LABS: Benzodiazepines Screen,Urine Negative ng/ml (<200); Methadone Screen,Urine Negative ng/ml (<300)
[2023-03-04 09:50] LABS: Cocaine Screen,Urine Negative ng/ml (<300); Phencyclidine Screen,Urine Negative ng/ml (<25)
[2023-03-04 09:51] LABS: Opiate Screen,Urine Negative ng/ml (<300)
[2023-03-04 10:04] LABS: 25-OH Vitamin D, Total 39.4 ng/mL (30-100)
[2023-03-04 10:05] LABS: Direct LDL Cholesterol 111.11 mg/dL (100-129); Free Thyroxine Index 2.4 ug/dL (5.93-13.13); T4 (Thyroxine) 6.8 ug/dl (5.53-11.0); Triiodothryronine (T3) Uptake 35 % (23.5-40.5)
[2023-03-04 10:19] LABS: Thyroid Stimulating Hormone 1.24 uIU/mL (0.465-4.68)
[2023-03-04 10:38] LABS: Vitamin B12 269 pg/mL (239-931)
[2023-03-04 10:42] LABS: Eosinophils % 4 % (0-3); Lymphocytes % 38 % (10-50); Monocytes % 4 % (2-9); Neutrophils % 54 % (42-76); Platelet Estimate Normal; RBC Morphology Normal; Total Cells Counted 100
[2023-03-05 09:25] LABS: HBsAg Screen Negative (Negative); HCV Ab Non Reactive (Non Reactive); Hep A Ab, IGM Negative (Negative); Hep B Core Ab, IgM Negative (Negative)
== END ==
PROVIDERS: PCP Emergency Medicine
DX: F31.9 Bipolar disorder, unspecified (principal); E66.9 Obesity, unspecified; Z68.35 Body mass index [BMI] 35.0-35.9, adult; Z79.899 Other long term (current) drug therapy
CPT/HCPCS: 36415; 80053; 80061; 80074; 80305; 82306; 82607; 83036; 84146; 84436; 84443; 84479; 85007; 85014; 85018; 85048; 85049

== ENCOUNTER 2023-04-25 09:35 | Emergency (ER) | payer BC, SELFPAY ==
[2023-04-25 10:00] VITALS: BP 124/71; PULSE 96; RESP 18; TEMP 37.1; O2SAT 98; BMI 36.1
--- NOTE | 2023-04-25 10:27 | EXP.UTC ---
Discharge Plan Disposition Patient Disposition: Home, Self-Care Condition: Good Prescriptions Prescriptions: New dextromethorphan polistirex [Delsym 12 hour] 30 mg/5 mL suspension,extended rel 12 hr 10 ml PO Q12H PRN (Reason: cough) Qty: 89 0RF No Action ziprasidone HCl 40 MG capsule 40 mg PO BID Referrals Follow up/Referrals: Provider,Referral, MD [Primary Care Provider] - See instructions Activity Restrictions/Add. Instructions Additional Instructions/Restrictions: *Monitor Temp, Over the counter Motrin or Tylenol as directed/as needed Tylenol every 4 hours and Motrin every 6 hours (as long as your family doctor has told you that you can take it) for fever or pain. and straight to ER if unable to lower temp less than 101.0 after medication given *Warm salt water gargles may help to soothe the throat *Throat Lozenges? *Warm fluids like tea with honey may help to soothe the throat? *Sleep elevated *Humidifier/Vaporizer Your throat swab was sent for culture. Those results are typically sent to your primary care. Be sure to follow up in 2-3 days with your family doctor/primary care physician if no improvement so they can review those result and treat if necessary. If you don?t have a primary care doctor, I recommend you get one but in the mean time, you will have to return to a walk in clinic Follow up IMMEDIATELY for new or worsening symptoms or no Noticeable improvement over the next 48-72 hours. 911 for difficulty breathing or swallowing You were tested for today for Upper Respiratory Panel with COVID19 your test result should be back in the next 24hours, you may check your results on the [facility] My Health Portal if your COVID test is positive you must Quarantine for 5 days Clinical Impressions Clinical Impression: Viral upper respiratory tract infection with cough Stand Alone Forms Stand Alone Forms: Work/School Release Instructions Patient Instructions: DI for Viral Upper Respiratory Infection -- Adult Discharge ED Provider: Alice Siddiqu[place] [facility] [place] General Stated complaint: RUNNY NOSE AND COUGH Mode of Arrival: Ambulatory Source of Information: Patient Limitations: No Limitations Time Seen by Provider: 04/25/23 10:27 Description of Symptoms (Recalled from Triage Doc. by RN): cough, runny nose, and vomiting HEENT Symptoms (Recalled from RN notes): Yes Resp Symptoms (Recalled from RN notes): No Skin Symptoms (Recalled from RN notes): No MS Symptoms (Recalled from RN notes): No Functional Status (Recalled from RN notes): n/a History of Present Illness Provider Complaint: Patient states that he hasnt been feeling well States that all his children are sick also States that he has been having cough, runny nose, vomiting and sore scratchy throat so he came in to get checked Related Data Home Medications Medication Instructions Recorded Confirmed ziprasidone HCl 40 mg capsule 40 mg PO BID BIPOLAR 03/20/21 04/25/23 Previous Rx's Medication Instructions Recorded dextromethorphan polistirex 30 10 ml PO Q12H PRN cough #89 mL 04/25/23 mg/5 mL oral susp ext.release 12hr (Delsym 12 hour) Allergies Allergy/AdvReac Type Severity Reaction Status Date / Time No Known Allergies Allergy Verified 04/25/23 10:27 Worker's Comp Is this a Worker's Comp case?: No [facility] Disclaimer: The information contained in this section may have been updated after the patient was seen, as this information can be updated by other users. Medical History Bipolar 2 disorder Surgical History No significant past surgical history Family History Other No significant family history Social History Smoking Status: Current every day smoker tobacco type: cigarette
[2023-04-25 10:58] LABS: UTC Influenza A Antigen Negative (Negative)
[2023-04-25 10:59] LABS: UTC Influenza B Antigen Negative (Negative)
[2023-04-25 11:20] VITALS: BP 124/71; PULSE 96; RESP 18; TEMP 37.1; O2SAT 98
== END 2023-04-25 11:28 | disposition home or self-care (01) ==
PROVIDERS: Emergency Provider Nurse Practitioner
DX: R05.9 Cough, unspecified (principal); J06.9 Acute upper respiratory infection, unspecified; B34.9 Viral infection, unspecified; R11.2 Nausea with vomiting, unspecified; R09.81 Nasal congestion; R07.0 Pain in throat; F17.210 Nicotine dependence, cigarettes, uncomplicated
CPT/HCPCS: 87804; 87880; 99212; 99214; G0463

== ENCOUNTER 2023-06-27 09:04 | Emergency (ER) | payer SELFPAY ==
[2023-06-27 09:20] VITALS: BP 128/75; PULSE 97; RESP 18; TEMP 36.6; O2SAT 97; BMI 35.1
--- NOTE | 2023-06-27 09:38 | ED_ITS ---
Discharge Plan Disposition Patient Disposition: Home, Self-Care Condition: Good Prescriptions Prescriptions: New prednisone 10 mg tablet 10 mg PO BID 3 Days Qty: 6 0RF amoxicillin [amoxicillin] 875 mg tablet 875 mg PO Q12H Qty: 20 0RF [id number] [Bromfed DM] 2-30-10 mg/5 mL Syrup 5 ml PO Q6H PRN (Reason: Cough) Qty: 240 0RF No Action ziprasidone HCl 40 MG capsule 40 mg PO BID dextromethorphan polistirex [Delsym 12 hour] 30 mg/5 mL suspension,extended rel 12 hr 10 ml PO Q12H PRN (Reason: cough) Qty: 89 0RF Referrals Follow up/Referrals: Provider,Referral, MD [Primary Care Provider] - See instructions Activity Restrictions/Add. Instructions Additional Instructions/Restrictions: Drink plenty of fluids. Take tylenol or ibuprofen for pain or fever. Take the medications as directed. Follow up with your regular doctor. GO TO THE ER FOR ANY WORSENING SYMPTOMS Clinical Impressions Clinical Impression: Pharyngitis Stand Alone Forms Stand Alone Forms: Work/School Release Instructions Patient Instructions: Sore Throat, DI for Pharyngitis/Tonsillopharyngitis -- Adult Discharge ED Provider: Hua Costello [facility] General Stated complaint: congestion, weakness and cough Time Seen by Provider: 06/27/23 09:38 History of Present Illness Provider Complaint: He states that for the past 2 days he has had worsening sore throat, chills, and malaise. Related Data Home Medications Medication Instructions Recorded Confirmed ziprasidone HCl 40 mg capsule 40 mg PO BID BIPOLAR 03/20/21 06/27/23 Previous Rx's Medication Instructions Recorded dextromethorphan polistirex 30 10 ml PO Q12H PRN cough #89 mL 04/25/23 mg/5 mL oral susp ext.release 12hr (Delsym 12 hour) amoxicillin 875 mg tablet 875 mg PO Q12H #20 tabs 06/27/23 [id number] 5 ml PO Q6H PRN Cough #240 mL 06/27/23 2 mg-30 mg-10 mg/5 mL oral syrup (Bromfed DM) prednisone 10 mg tablet 10 mg PO BID 3 days #6 tabs 06/27/23 Allergies Allergy/AdvReac Type Severity Reaction Status Date / Time No Known Allergies Allergy Verified 06/27/23 09:48 [facility] Disclaimer: The information contained in this section may have been updated after the patient was seen, as this information can be updated by other users. Medical History Bipolar 2 disorder Surgical History No significant past surgical history Family History Other No significant family history Social History Smoking Status: Current every day smoker tobacco type: cigarettes packs per day: 2 second hand exposure: No alcohol intake: never substance use type: denies use current occupational status: other Travel in the last 8 weeks: None number of children: 2 ROS Obtained: Yes All systems reviewed & no additional complaints except as documented Constitutional Constitutional: Reports chills and Reports fever(s) Eyes Eyes: Denies eye discharge ENT Ears, Nose, Mouth, and Throat: Reports as per HPI Cardiovascular Cardiovascular: Denies chest pain Respiratory Respiratory: Denies chest congestion and Reports cough Gastrointestinal Gastrointestingal: Reports nausea; Denies abdominal pain, constipation, cramping, diarrhea or vomiting Musculoskeletal Musculoskeletal: Denies arthralgias Integumentary/Breasts Skin/Breast: Denies rash Neurologic Neurologic: Denies paresthesias Physical Exam General General appearance: alert and in no apparent distress Head Head exam: atraumatic, normocephalic and normal inspection Eye Eye exam: Present normal appearance, PERRL and EOMI ENT ENT exam: Present mucous membranes moist and normal external ear exam Expanded ENT Exam TM/Canal exam: Bilateral TM: erythema and bulging Nose exam: Absent sinus tenderness Mouth exam: Present normal external inspection; Absent drooling Teeth exam: Present normal inspection Throat exam: Present tonsillar erythema, tonsillomegaly and tonsillar exudate Neck Neck exam: Present normal inspection, full ROM and trachea midline; Absent tenderness, meningismus or lymphadenopathy Chest Chest inspection: Present normal inspection and symmetric chest wall rise; Absent tenderness Respiratory Respiratory exam: Present normal lung sounds bilaterally; Absent respiratory distress, wheezes or stridor Cardiovascular Cardiovascular exam: Present regular rate and normal rhythm; Absent systolic murmur or diastolic murmur Abdominal Exam Abdominal exam: Present soft and normal bowel sounds; Absent distention, tenderness, guarding, rebound or rigidity Extremities Exam Extremities exam: Present normal inspection and normal capillary refill; Absent calf tenderness Back Exam Back exam: Present normal inspection and full ROM; Absent tenderness, CVA tenderness (R) or CVA tenderness (L) Neurological Exam Neurological exam: Present alert, oriented X3 and CN II-XII intact Psychiatric Psychiatric exam: Present normal affect and normal mood Skin Skin exam: Present warm, dry, intact and normal color Medical Decision Making Medical Records Medical records reviewed: No I reviewed the patient's medical records. Oscar Inquiry Pt receiving controlled substance: No Lab Data Lab results reviewed: Yes I reviewed the patient's lab results.
[2023-06-27 10:07] LABS: UTC Influenza A Antigen Negative (Negative); UTC Influenza B Antigen Negative (Negative); UTC Strep Screen (Rapid) Negative (Negative)
[2023-06-27 10:21] VITALS: BP 128/75; PULSE 97; RESP 18; TEMP 36.6; O2SAT 97
== END 2023-06-27 10:21 | disposition home or self-care (01) ==
PROVIDERS: Emergency Provider Nurse Practitioner Family
DX: J02.9 Acute pharyngitis, unspecified (principal); R50.9 Fever, unspecified; R05.9 Cough, unspecified; R53.81 Other malaise; F17.210 Nicotine dependence, cigarettes, uncomplicated
CPT/HCPCS: 87804; 87880; 99212; 99214; G0463

== ENCOUNTER 2024-01-26 09:13 | Emergency (ER) | payer BC, SELFPAY ==
--- NOTE | 2024-01-26 09:27 | EXP.UTC ---
Discharge Plan Disposition Patient Disposition: Home, Self-Care Condition: Good Prescriptions Prescriptions: New cyclobenzaprine 10 mg Tablet 10 mg PO BID PRN (Reason: Muscle Spasm) Qty: 20 0RF methylprednisolone 4 mg Tablets,Dose Pack 4 mg PO DIRECTED 6 Days Qty: 21 0RF Rx Instructions: Take 1 pack as directed for 6 days No Action ziprasidone HCl 40 MG capsule 40 mg PO BID prednisone 10 mg tablet 10 mg PO BID 3 Days Qty: 6 0RF amoxicillin [amoxicillin] 875 mg tablet 875 mg PO Q12H Qty: 20 0RF [id number] [Bromfed DM] 2-30-10 mg/5 mL Syrup 5 ml PO Q6H PRN (Reason: Cough) Qty: 240 0RF dextromethorphan polistirex [Delsym 12 hour] 30 mg/5 mL suspension,extended rel 12 hr 10 ml PO Q12H PRN (Reason: cough) Qty: 89 0RF Referrals Follow up/Referrals: Provider,Referral, MD [Primary Care Provider] - See instructions Activity Restrictions/Add. Instructions Additional Instructions/Restrictions: Go home and rest. It would be best if you rested tomorrow too. No heavy lifting and No twisting for the next few days. Take the oral medications as directed. The muscle relaxer (cyclobenzaprine--Flexeril) will make you drowsy, so don't drive or operate heavy machinery after taking it. Don't start the oral steroids (medrol dose pack) until tomorrow, since you had the shots in here today. Follow up with your regular doctor. GO TO THE ER FOR ANY WORSENING SYMPTOMS OR CONCERN, ESPECIALLY BOWEL OR BLADDER ISSUES, SADDLE AREA NUMBNESS, FEVER, ETC Clinical Impressions Clinical Impression: Torticollis Stand Alone Forms Stand Alone Forms: Work/School Release Instructions Patient Instructions: DI for Torticollis, Ketorolac Injection, Dexamethasone Injection Print Language Print Language: Bulgarian Discharge ED Provider: Hua Costello [facility] General Stated complaint: left shoulder and neck pain Time Seen by Provider: 01/26/24 09:27 History of Present Illness Provider Complaint: He c/o neck pain and stiffness that radiates to his left shoulder since yesterday morning. He states that he woke up this way and he denies any falls or injuries. He denies fever/chills/malaise. Related Data Home Medications ?Medication ?Instructions ?Recorded ?Confirmed ziprasidone HCl 40 mg capsule 40 mg PO BID BIPOLAR 03/20/21 06/27/23 Previous Rx's ?Medication ?Instructions ?Recorded dextromethorphan polistirex 30 10 ml PO Q12H PRN cough #89 mL 04/25/23 mg/5 mL oral susp ext.release 12hr (Delsym 12 hour) amoxicillin 875 mg tablet 875 mg PO Q12H #20 tabs 06/27/23 pbkiylfqmxeqrdj-gpskuxtilfbrdqn-JF 5 ml PO Q6H PRN Cough #240 mL 06/27/23 2 mg-30 mg-10 mg/5 mL oral syrup (Bromfed DM) prednisone 10 mg tablet 10 mg PO BID 3 days #6 tabs 06/27/23 cyclobenzaprine 10 mg tablet 10 mg PO BID PRN Muscle Spasm #20 01/26/24 tabs methylprednisolone 4 mg tablets in 4 mg PO DIRECTED 6 days #21 tabs 01/26/24 a dose pack Allergies Allergy/AdvReac Type Severity Reaction Status Date / Time No Known Allergies Allergy Verified 06/27/23 09:48 [facility] Disclaimer: The information contained in this section may have been updated after the patient was seen, as this information can be updated by other users. Medical History Bipolar 2 disorder Surgical History No significant past surgical history Family History Other No significant family history Social History Smoking Status: Current every day smoker tobacco type: cigarettes packs per day: 2 second hand exposure: No alcohol intake: never substance use type: denies use current occupational status: other Travel in the last 8 weeks: None number of children: 2 ROS Obtained: Yes All systems reviewed & no additional complaints except as documented Constitutional Constitutional: Denies chills and Denies fever(s) Eyes Eyes: Denies eye discharge ENT Ears, Nose, Mouth, and Throat: Denies dizziness, Denies otalgia, Reports neck pain and Denies sore throat Cardiovascular Cardiovascular: Denies chest pain Respiratory Respiratory: Denies shortness of breath, Denies chest congestion, Denies cough, Denies stridor and Denies wheezing Gastrointestinal Gastrointestingal: Denies nausea or vomiting Musculoskeletal Musculoskeletal: Denies back pain and Reports neck pain Integumentary/Breasts Skin/Breast: Denies rash Neurologic Neurologic: Denies dizziness and Denies paresthesias Allergic/Immunologic Allergic/Immunologic: Denies wheezing Physical Exam General General appearance: alert and in no apparent distress Head Head exam: atraumatic, normocephalic and normal inspection Eye Eye exam: Present normal appearance, PERRL and EOMI ENT ENT exam: Present normal exam, normal oropharynx, mucous membranes moist, TM's normal bilaterally and normal external ear exam Neck Neck exam: Present trachea midline; Absent tenderness, meningismus or lymphadenopathy Chest Chest inspection: Present normal inspection and symmetric chest wall rise; Absent tenderness Respiratory Respiratory exam: Present normal lung sounds bilaterally; Absent respiratory distress Cardiovascular Cardiovascular exam: Present regular rate and normal rhythm; Absent JVD Abdominal Exam Abdominal exam: Present soft and normal bowel sounds; Absent distention, tenderness or guarding Extremities Exam Extremities exam: Present normal inspection, full ROM and normal capillary refill; Absent calf tenderness Back Exam Back exam: Present normal inspection; Absent tenderness Neurological Exam Neurological exam: Present alert and oriented X3 Psychiatric Psychiatric exam: Present normal affect and normal mood Skin Skin exam: Present warm, dry, intact and normal color Lymphatic Lymphatic Findings: no adenopathy Medical Decision Making Medical Records Medical records reviewed: No I reviewed the patient's medical records. Oscar Inquiry Pt receiving controlled substance: No
[2024-01-26 09:31] VITALS: BP 144/79; PULSE 78; RESP 16; TEMP 36.8; O2SAT 99; BMI 35.4
[2024-01-26] MEDS: KETOROLAC 60MG/2ML VIAL 60 MG IM (10:15)
[2024-01-26] MEDS: DEXAMETHASONE 4MG/ML 1ML VIAL 10 MG IM (10:15)
[2024-01-26 10:38] VITALS: BP 144/79; PULSE 78; RESP 16; TEMP 36.8; O2SAT 99
== END 2024-01-26 10:41 | disposition home or self-care (01) ==
PROVIDERS: Emergency Provider Nurse Practitioner Family
DX: M43.6 Torticollis (principal); M54.2 Cervicalgia
CPT/HCPCS: 96372; 99212; 99214; G0463; J1100; J1885

== ENCOUNTER 2024-03-08 08:20 | Emergency (ER) | payer BC, SELFPAY ==
--- NOTE | 2024-03-08 08:34 | EXP.UTC ---
Discharge Plan Disposition Patient Disposition: Home, Self-Care Condition: Good Prescriptions Prescriptions: New amoxicillin 875 mg tablet 875 mg PO Q12H Qty: 20 0RF [id number]-[id number] [Bromfed DM] 2-30-10 mg/5 mL Syrup 5 ml PO Q6H PRN (Reason: Cough) Qty: 240 0RF No Action ziprasidone HCl 40 MG capsule 40 mg PO BID Referrals Follow up/Referrals: Abiel Dockery DO [Primary Care Provider] - See instructions Activity Restrictions/Add. Instructions Additional Instructions/Restrictions: Drink plenty of fluids. Take tylenol or ibuprofen for pain or fever. Take the medications as directed. Follow up with your regular doctor. GO TO THE ER FOR ANY WORSENING SYMPTOMS Throw your tooth brush away and get a new one. Clinical Impressions Clinical Impression: Strep pharyngitis Stand Alone Forms Stand Alone Forms: Work/School Release Instructions Patient Instructions: Strep Throat, DI for Strep Throat Print Language Print Language: Tamaz[place] Discharge ED Provider: Hua Costello [facility] HPI General Stated complaint: cough, chills, body aches, nausea, vomit, diarrhea Time Seen by Provider: 03/08/24 08:34 Related Data Home Medications ?Medication ?Instructions ?Recorded ?Confirmed ziprasidone HCl 40 mg capsule 40 mg PO BID BIPOLAR 03/20/21 03/08/24 Previous Rx's ?Medication ?Instructions ?Recorded amoxicillin 875 mg tablet 875 mg PO Q12H #20 tabs 03/08/24 febszoimqqonpqf-vokjpoaujnekcso-ZV 5 ml PO Q6H PRN Cough #240 mL 03/08/24 2 mg-30 mg-10 mg/5 mL oral syrup (Bromfed DM) Allergies Allergy/AdvReac Type Severity Reaction Status Date / Time No Known Allergies Allergy Verified 06/27/23 09:48 [facility] Disclaimer: The information contained in this section may have been updated after the patient was seen, as this information can be updated by other users. Medical History Bipolar 2 disorder Surgical History No significant past surgical history Family History Other No significant family history Social History Smoking Status: Current every day smoker tobacco type: cigarettes packs per day: 2 second hand exposure: No alcohol intake: never substance use type: denies use current occupational status: other Travel in the last 8 weeks: None number of children: 2 ROS Obtained: Yes All systems reviewed & no additional complaints except as documented Constitutional Constitutional: Reports chills and Reports fever(s) Eyes Eyes: Denies eye discharge ENT Ears, Nose, Mouth, and Throat: Reports as per HPI Cardiovascular Cardiovascular: Denies chest pain Respiratory Respiratory: Denies chest congestion and Reports cough Gastrointestinal Gastrointestingal: Reports nausea; Denies abdominal pain, constipation, cramping, diarrhea or vomiting Musculoskeletal Musculoskeletal: Denies arthralgias Integumentary/Breasts Skin/Breast: Denies rash Neurologic Neurologic: Denies paresthesias Physical Exam General General appearance: alert and in no apparent distress Head Head exam: atraumatic, normocephalic and normal inspection Eye Eye exam: Present normal appearance, PERRL and EOMI ENT ENT exam: Present mucous membranes moist and normal external ear exam Expanded ENT Exam TM/Canal exam: Bilateral TM: erythema and bulging Nose exam: Absent sinus tenderness Mouth exam: Present normal external inspection; Absent drooling Teeth exam: Present normal inspection Throat exam: Present tonsillar erythema, tonsillomegaly and tonsillar exudate Neck Neck exam: Present normal inspection, full ROM and trachea midline; Absent tenderness, meningismus or lymphadenopathy Chest Chest inspection: Present normal inspection and symmetric chest wall rise; Absent tenderness Respiratory Respiratory exam: Present normal lung sounds bilaterally; Absent respiratory distress, wheezes, stridor or accessory muscle use Cardiovascular Cardiovascular exam: Present regular rate and normal rhythm; Absent systolic murmur or diastolic murmur Abdominal Exam Abdominal exam: Present soft and normal bowel sounds; Absent distention, tenderness, guarding, rebound or rigidity Extremities Exam Extremities exam: Present normal inspection and normal capillary refill; Absent calf tenderness Back Exam Back exam: Present normal inspection and full ROM; Absent tenderness, CVA tenderness (R) or CVA tenderness (L) Neurological Exam Neurological exam: Present alert, oriented X3 and CN II-XII intact Psychiatric Psychiatric exam: Present normal affect and normal mood Skin Skin exam: Present warm, dry, intact and normal color Medical Decision Making Medical Records Medical records reviewed: No I reviewed the patient's medical records. Screening: Per USPSTF and CDC recommendations, given the prevalence of disease in our region, it is our hospital?s policy to screen for HIV and viral Hepatitis for all patients aged 18 and over and those with ongoing risk factors. Oscar Inquiry Pt receiving controlled substance: No Lab Data Lab results reviewed: Yes I reviewed the patient's lab results.
[2024-03-08 08:44] VITALS: BP 160/98; PULSE 98; RESP 20; TEMP 36.9; O2SAT 97; BMI 35.7
[2024-03-08 08:56] LABS: UTC Influenza A Antigen Negative (Negative); UTC Influenza B Antigen Negative (Negative); UTC Strep Screen (Rapid) Positive (Negative)
[2024-03-08 09:22] VITALS: BP 160/98; PULSE 98; RESP 20; TEMP 36.9
== END 2024-03-08 09:23 | disposition home or self-care (01) ==
PROVIDERS: Emergency Provider Nurse Practitioner Family; PCP Internal Medicine
DX: J02.0 Streptococcal pharyngitis (principal)
CPT/HCPCS: 87804; 87880; 99213; G0381

== ENCOUNTER 2024-08-03 08:24 | Outpatient (CLI) | payer BC, SELFPAY ==
[2024-08-03 08:58] LABS: Basophils # 0.1 K/mm3 (0-0.2); Basophils % 0.6 % (0.1-2.0); Eosinophils # 0.6 K/mm3 (0.0-0.4); Eosinophils % 4.9 % (0.1-12.0); Hematocrit 39.1 % (42.0-52.0); Hemoglobin 13.1 g/dL (14.1-18.0); Lymphocytes # 3.4 K/mm3 (0.7-4.5); Lymphocytes % 29.2 % (10-50); Mean Corpuscular HGB Conc 33.5 g/dL (31.8-35.4); Mean Corpuscular Hemoglobin 28.9 pg (27.0-31.2); Mean Corpuscular Volume 86.1 fl (80-94); Mean Platelet Volume 9.7 fl (7.4-10.4); Monocytes % 8.3 % (1.7-9.3); Neutrophils # 6.6 K/mm3 (1.8-7.8); Neutrophils % 56.7 % (37.0-80.0); Platelet Count 294 K/mm3 (142-424); Red Blood Count 4.54 M/mm3 (4.60-6.20); Red Cell Distribution Width 13.1 % (11.5-17.5); White Blood Count 11.6 K/mm3 (4.8-10.8)
[2024-08-03 09:19] LABS: Hemoglobin A1C 5.8 % (4.0-6.0)
[2024-08-03 09:20] LABS: Alanine Aminotransferase 47 U/L (12-78); Albumin Level 4.4 g/dl (3.5-5.0); Albumin/Globulin Ratio 1.7 (1.1-1.8); Alkaline Phosphatase 41 U/L (38-126); Anion Gap 11.7 mEq/L (5-15); Aspartate Amino Transferase 35 U/L (17-59); Bilirubin,Direct 0.1 mg/dl (0.0-0.4); Bilirubin,Total 0.3 mg/dl (0.2-1.3); Blood Urea Nitrogen 13 mg/dl (9-20); Calcium 9.4 mg/dl (8.4-10.2); Carbon Dioxide 26 mmol/L (22.0-30.0); Chloride 103 mmol/L (98-107); Estimated Glomerular Filt Rate 100 ml/min (>60); GFR (African American) 121 ML/MIN (>60); Globulin 2.6 g/dL (1.3-3.2); Glucose 103 mg/dl (74-100); Potassium 3.7 mmoL/L (3.5-5.1); Sodium 137 mmol/L (136-145)
[2024-08-03 09:28] LABS: Barbiturates Screen,Urine Negative ng/ml (<200)
[2024-08-03 09:29] LABS: Benzodiazepines Screen,Urine Negative ng/ml (<200)
[2024-08-03 09:30] LABS: Amphetamine/Metha Screen,Urine Negative ng/ml (<1000); Cocaine Screen,Urine Negative ng/ml (<300)
[2024-08-03 09:31] LABS: Methadone Screen,Urine Negative ng/ml (<300)
[2024-08-03 09:32] LABS: Opiate Screen,Urine Negative ng/ml (<300)
[2024-08-03 09:33] LABS: Phencyclidine Screen,Urine Negative ng/ml (<25)
[2024-08-03 09:43] LABS: Cannabinoid Screen,Urine Negative ng/ml (<50)
[2024-08-04 09:14] LABS: Prolactin 13.3 ng/mL (3.6-31.5)
== END 2024-08-03 23:59 | disposition home or self-care (01) ==
LOC: LAB 08:27
PROVIDERS: PCP Internal Medicine; Visit Provider Registered Nurse Addiction (Substance Use Disorder)
DX: F90.2 Attention-deficit hyperactivity disorder, combined type (principal); Z79.899 Other long term (current) drug therapy
CPT/HCPCS: 36415; 80053; 80307; 82248; 83036; 84146; 85025

== ENCOUNTER 2025-02-04 20:40 | Emergency (ER) | payer BC, SELFPAY ==
--- NOTE | 2025-02-04 21:09 | HMH.EDGENADL ---
Discharge Plan Disposition Patient Disposition: Home, Self-Care Condition: Good Prescriptions Prescriptions: New ondansetron 4 mg tablet,disintegrating 4 mg PO DAILY PRN (Reason: nausea and vomiting) 4 Days Qty: 10 0RF No Action varenicline tartrate 0.5 mg (11)- 1 mg (42) tablets,dose pack PO Patient Comments: TAKE DIRECTED ondansetron 4 mg tablet,disintegrating 4 mg PO Q8H PRN (Reason: nausea and vomiting) Qty: 10 0RF azithromycin 500 mg tablet See Rx Instructions PO .COMPLEX Qty: 3 0RF Rx Instructions: For 500 mg dose pack: take 500 mg once daily for 3 days PO ziprasidone HCl 40 MG capsule 40 mg PO BID Referrals Follow up/Referrals: Svetlana Miller APRN [Primary Care Provider, Medical] - See instructions Activity Restrictions/Add. Instructions Additional Instructions/Restrictions: Take the zofran as needed for nausea and vomiting. Return for any acute or worsening symptoms. Clinical Impressions Clinical Impression: Constipation Stand Alone Forms Stand Alone Forms: Work/School Release Instructions Patient Instructions: DI for Acute Abdominal Pain Print Language Print Language: [place] Discharge ED Provider: Sia Apodaca General Adult HPI General Chief complaint: Abdominal Pain Stated complaint: Vomitting;Nausea Time Seen by Provider: 02/04/25 20:48 History of Present Illness HPI narrative: Patient is an otherwise healthy 30-year-old male who presents to the emergency department with abdominal pain nausea vomiting. Patient states that he has had abdominal pain over the last day. Patient reports nausea and vomiting. Patient denies any urinary symptoms. Denies any chest pain or shortness of breath. Denies any upper respiratory symptoms. Patient has not had no prior surgeries. Related Data Home Medications ?Medication ?Instructions ?Recorded ?Confirmed ziprasidone HCl 40 mg capsule 40 mg PO BID BIPOLAR 03/20/21 01/30/25 varenicline tartrate 0.5 mg (11)-1 tab PO 01/30/25 01/30/25 mg (42) tablets in a dose pack Previous Rx's ?Medication ?Instructions ?Recorded azithromycin 500 mg tablet See Rx Instructions PO .COMPLEX #3 01/30/25 tabs ondansetron 4 mg disintegrating 4 mg PO Q8H PRN nausea and 01/30/25 tablet vomiting #10 tabs ondansetron 4 mg disintegrating 4 mg PO DAILY PRN nausea and 02/04/25 tablet vomiting 4 days #10 tabs Allergies Allergy/AdvReac Type Severity Reaction Status Date / Time No Known Allergies Allergy Verified 01/30/25 09:19 [facility] Disclaimer: The information contained in this section may have been updated after the patient was seen, as this information can be updated by other users. Medical History Bipolar 2 disorder Surgical History No significant past surgical history Family History Other No significant family history Social History Smoking Status: Current every day smoker tobacco type: cigarettes packs per day: 2 second hand exposure: No alcohol intake: never substance use type: denies use current occupational status: other Travel in the last 8 weeks?: None number of children: 2 Have you lived/traveled outside [place] in past 30 days?: No Contact w/someone who lives/traveled outside [place] past 30 days?: No Exposure to someone with infectious disease in past 14 days?: No Do you have a fever (greater than 100.4 F or 38 C)?: No Have you tested positive for COVID-19?: No Exposed to someone with COVID-19 in past 14 days?: No Do you have a sore throat?: No Do you have a cough?: No Do you have any weakness?: No Do you have any diarrhea?: No Are you experiencing any unusual bleeding?: No Do you have any muscle aches/pain?: No Do you have any abdominal pain?: No Are you experiencing loss of taste or smell?: No Other Medical History Have you received the Pneumonia Vaccine: No ROS Obtained: Yes All systems reviewed & no additional complaints except as documented and Yes Systems reviewed as appropriate & no additional complaints except as documented Physical Exam General General appearance: alert and in no apparent distress Head Head exam: atraumatic, normocephalic and normal inspection Eye Eye exam: Present normal appearance, PERRL and EOMI; Absent scleral icterus ENT ENT exam: Present normal exam and normal external ear exam Neck Neck exam: Present normal inspection and full ROM Chest Chest inspection: Present normal inspection and symmetric chest wall rise Respiratory Respiratory exam: Present normal lung sounds bilaterally; Absent respiratory distress or wheezes Cardiovascular Cardiovascular exam: Present regular rate, normal rhythm and normal heart sounds Abdominal Exam Abdominal exam: Present soft, distention and tenderness (RLQ tenderness); Absent guarding or rebound Extremities Exam Extremities exam: Present normal inspection and full ROM Back Exam Back exam: Present normal inspection and full ROM Neurological Exam Neurological exam: Present alert and oriented X3 Psychiatric Psychiatric exam: Present normal affect and normal mood Skin Skin exam: Present warm and dry Medical Decision Making Medical Records Screening: Per USPSTF and CDC recommendations, given the prevalence of disease in our region, it is our hospital?s policy to screen for HIV and viral Hepatitis for all patients aged 18 and over and those with ongoing risk factors. Oscar Inquiry Pt receiving controlled substance: No Vital Signs: 02/04/25 21:30 02/05/25 00:02 Temperature 98.7 F 98.1 F Temperature Source Temporal Artery Scan Pulse Rate 65 Pulse Rate [Right] 56 L Respiratory Rate 18 20 Blood Pressure 119/92 H Blood Pressure [Right Arm] 128/78 Blood Pressure Mean [Right Arm] 94 02 Sat by Pulse Oximetry 97 Oxygen Delivery Method Room Air Room Air Lab Data Lab results reviewed: Yes I reviewed the patient's lab results. Lab Results 02/04/25 21:27: WBC 10.9 H, RBC 5.06, Hgb 14.8, Hct 43.1, MCV 85.2, MCH 29.2, MCHC 34.3, RDW 13.9, Plt Count 296, MPV 9.8, Neut % (Auto) 48.4, Lymph % (Auto) 36.9, Maverick % (Auto) 9.6 H, Eos % (Auto) 4.3, Baso % (Auto) 0.5, Neut # (Auto) 5.3, Lymph # (Auto) 4.0, Maverick # (Auto) 1.1 H, Eos # (Auto) 0.5 H, Baso # (Auto) 0.1, Sodium 139, Potassium 3.5, Chloride 101, Carbon Dioxide 27, Anion Gap 14.5, BUN 10, Creatinine 0.90, Estimated Creat Clear 172, Estimated GFR 99, Est GFR ( Amer) 120, Glucose 91, Calcium 9.6, Total Bilirubin 0.5, AST 32, ALT 32, Alkaline Phosphatase 34 L, Total Protein 7.5, Albumin 4.6, Globulin 2.9, Albumin/Globulin Ratio 1.6, Lipase 89, HCV Ab DU w/Rflx PCR Qn Negative, HIV Ag/Ab Combo Qual Negative 02/04/25 21:27 02/04/25 21:27 Orders (Tests/Meds): ED MEDICATIONS Discontinued Medications Generic Name Dose Route Start Last Admin Trade Name Freq PRN Reason Stop Dose Admin Iopamidol 75 ml 02/04/25 22:14 02/04/25 22:14 Iopamidol-370 (76%);100ml Bottle IV 02/04/25 22:15 75 ml ONCE ONE Administration Ondansetron HCl 4 mg 02/04/25 21:24 02/04/25 22:08 Ondansetron 4mg/2ml Vial IV 02/04/25 21:25 4 mg ONCE ONE Administration Sodium Chloride 10 ml 02/04/25 22:14 02/04/25 22:14 Sodium Chloride 0.9% 10ml Syr (Rad Only) IV 03/06/25 22:13 10 ml NEEDED PRN Administration Maintain IV Site ORDERS Category Date Time Status CT abdomen pelvis w con Stat Cat Scan 02/04/25 21:24 Completed CBC w/Auto Diff [Complete Blood Count Auto Diff] Stat Lab 02/04/25 21:27 Completed CMP [Comprehensive Metabolic Panel] Stat Lab 02/04/25 21:27 Completed HIV Combo Stat Lab 02/04/25 21:27 Completed Hepatitis C Ab Qual. W/ RFX Stat Lab 02/04/25 21:27 Completed Lipase Stat Lab 02/04/25 21:27 Completed Medical Decision Narrative: Patient is an otherwise healthy 30-year-old male who presented to the emergency department with nausea vomiting and abdominal pain. On arrival, patient was hemodynamically stable with unremarkable vital signs. On exam, patient had some right lower quadrant abdominal tenderness, no testicular pain or tenderness. Differential includes but not limited to: Constipation, intra-abdominal abscess, appendicitis, bowel obstruction, gastroenteritis, amongst others Labs reviewed and interpreted by myself: CBC showed no leukocytosis, hemoglobin was stable. CMP was unremarkable. Lipase normal. CT scan was reviewed and interpreted by myself and showed no acute pathology. Patient was given IV fluids and Zofran in the emergency department with significant improvement. Patient was able to tolerate oral intake and given patient's otherwise negative workup I felt the patient was appropriate for discharge home. Return precautions were discussed. Critical Care Critical Care Time Critical Care Time: No
--- NOTE | 2025-02-04 21:24 | CT_ITS ---
PROCEDURE INFORMATION: Exam: CT Abdomen And Pelvis With Contrast Exam date and time: 02/04/2025 10:13 PM Age: 30 years old Clinical indication: Abdominal pain; Additional info: Rlq abdominal tenderness TECHNIQUE: Imaging protocol: Computed tomography of the abdomen and pelvis with contrast. Radiation optimization: All CT scans at this facility use at least one of these dose optimization techniques: automated exposure control; mA and/or kV adjustment per patient size (includes targeted exams where dose is matched to clinical indication); or iterative reconstruction. Contrast material: ISOVUE; Contrast volume: 75 ml; Contrast route: IV; COMPARISON: CR XR HIP BI W [id number] 06/10/2019 12:58 PM FINDINGS: Lungs: No acute finding. Diaphragm: A small hiatal hernia is present. Liver: Mild hepatic steatosis is evident. Gallbladder and biliary ducts: Normal. No calcified stones. No ductal dilation. Pancreas: Normal. No ductal dilation. Spleen: Normal. No splenomegaly. Adrenal glands: Normal. No mass. Kidneys and ureters: Normal. No hydronephrosis. Stomach and bowel: There are few scattered colonic diverticula without acute inflammation. No bowel obstruction. No mucosal thickening. Appendix: No evidence of appendicitis. Intraperitoneal space: Unremarkable. No free air. No significant fluid collection. Vasculature: Unremarkable. No abdominal aortic aneurysm. Lymph nodes: Unremarkable. No enlarged lymph nodes. Urinary bladder: Unremarkable as visualized. Reproductive: Unremarkable as visualized. Bones/joints: Unremarkable. No acute fracture. Soft tissues: Unremarkable. IMPRESSION: There is no acute process evident within the abdomen or pelvis.
[2025-02-04 21:30] VITALS: BP 128/78; PULSE 56; RESP 18; TEMP 37.1; O2SAT 97; BMI 34.0
[2025-02-04 21:36] LABS: Hematocrit 43.1 % (42.0-52.0); Hemoglobin 14.8 g/dL (14.1-18.0); Immature Granulocytes % 0.3 %; Mean Corpuscular HGB Conc 34.3 g/dL (31.8-35.4); Mean Corpuscular Hemoglobin 29.2 pg (27.0-31.2); Mean Corpuscular Volume 85.2 fl (80-94); Nucleated Red Blood Cells % 0 %; Platelet Count 296 K/mm3 (142-424); Red Blood Count 5.06 M/mm3 (4.60-6.20); Red Cell Distribution Width-SD 42.9 fL; White Blood Count 10.9 K/mm3 (4.8-10.8)
[2025-02-04 21:44] LABS: Chloride 101 mmol/L (98-107); Potassium 3.5 mmoL/L (3.5-5.1); Sodium 139 mmol/L (136-145)
[2025-02-04 21:47] LABS: Alanine Aminotransferase 32 U/L (12-78); Alkaline Phosphatase 34 U/L (38-126); Aspartate Amino Transferase 32 U/L (17-59); Bilirubin,Total 0.5 mg/dl (0.2-1.3); Blood Urea Nitrogen 10 mg/dl (9-20); Creatinine Clearance Estimated 172 mL/min (50-200); Creatinine,Serum 0.90 mg/dl (0.66-1.25); Estimated Glomerular Filt Rate 99 ml/min (>60); GFR (African American) 120 ML/MIN (>60); Lipase 89 U/L (23-300); Total Protein,Serum 7.5 g/dl (6.3-8.2)
[2025-02-04 21:48] LABS: Calcium 9.6 mg/dl (8.4-10.2); Glucose 91 mg/dl (74-100)
[2025-02-04 21:49] LABS: Anion Gap 14.5 mEq/L (5-15); Carbon Dioxide 27 mmol/L (22.0-30.0)
[2025-02-04 21:50] LABS: Albumin Level 4.6 g/dl (3.5-5.0); Albumin/Globulin Ratio 1.6 (1.1-1.8); Globulin 2.9 g/dL (1.3-3.2)
[2025-02-04] MEDS: ONDANSETRON 4MG/2ML VIAL 4 MG IV (22:08)
[2025-02-04] MEDS: SODIUM CHLORIDE 0.9% 10ML SYR (RAD ONLY) 10 ML IV (22:14)
[2025-02-04] MEDS: IOPAMIDOL-370 (76%);100ML BOTTLE 75 ML IV (22:14)
[2025-02-04 22:36] LABS: Hepatitis C Ab Qual. W/ RFX NEGATIVE (Negative)
[2025-02-05 00:02] VITALS: BP 119/92; PULSE 65; RESP 20; TEMP 36.7; O2SAT 99
== END 2025-02-05 00:11 | disposition home or self-care (01) ==
PROVIDERS: Emergency Provider Student in an Organized Health Care Education/Training Program; PCP Nurse Practitioner Family
DX: R10.31 Right lower quadrant pain (principal); R11.2 Nausea with vomiting, unspecified; F17.210 Nicotine dependence, cigarettes, uncomplicated
CPT/HCPCS: 74177; 80053; 83690; 85025; 86803; 87389; 96374; 99283; 99284; J2405; Q9967